=== PATIENT | female | born 1980 ===

== ENCOUNTER 2018-01-31 07:30 | Day surgery (SDC) | payer BC, OTHER ==
[~2018-01-31 07:30] MED LIST: Buffered Lidocaine 0.9% SYRIN* 5 ML/SYR SYRINGE INTRADERM ONE; Famotidine TAB* 20 MG PO ONE
[2018-01-31] MEDS ORDERED: Famotidine TAB* 20 MG ONE (08:09)
[2018-01-31] MEDS ORDERED: Ketorolac INJ* 30 MG/ML 1 ML VIAL ONE ×2 (08:09→08:32)
[2018-01-31] MEDS ORDERED: ceFAZolin 2 GM PREMIX (*) 2 GM/50 ML BAG IVPB ONE (08:09)
[2018-01-31] MEDS ORDERED: fentaNYL* 50 MCG/ML 2 ML VIAL (100 MCG VIAL) ONE ×2 (08:25→09:42)
[2018-01-31] MEDS ORDERED: Midazolam* 1 MG/ML 5 ML VIAL (5 MG) ONE (08:26)
[2018-01-31] MEDS ORDERED: DiMENhydriNATE IV* 50 MG/ML VIAL ONE (08:32)
[2018-01-31] MEDS ORDERED: Propofol* 10 MG/ML 20 ML BTL IV PUSH ONE (08:32)
[2018-01-31] MEDS ORDERED: Succinylcholine* 20 MG/ML 10 ML VIAL ONE (08:32)
[2018-01-31] MEDS ORDERED: Lidocaine 2% PF * 5 ML VIAL ONE (08:32)
[2018-01-31] MEDS ORDERED: Dexamethasone IV* 4 MG/ML 1 ML (4 MG) ONE (08:32)
[2018-01-31] MEDS ORDERED: Rocuronium* 10 MG/ML VIAL ONE (08:33)
[2018-01-31] MEDS ORDERED: Bupivacaine 0.25% SDV* 30 ML ONE (09:02)
[2018-01-31] MEDS ORDERED: DiMENhydriNATE IV* 50 MG/ML VIAL IV PUSH PRN (10:06)
[2018-01-31] MEDS ORDERED: Naloxone* 0.4 MG/ML 1 ML VIAL IV PRN (10:06)
[2018-01-31] MEDS ORDERED: Acetaminophen IV 1GM/100ML * 1,000 MG/100 ML VIAL IVPB ONE (10:06)
--- NOTE | 2018-01-31 11:08 | BRIEFOPN ---
Brief Operative Note - Surgery Procedures: Preop Dx: Abdominal Pain Postop Dx: Same Procedure: Laparoscopic Lysis of Adhesion Surgeon: Marry Assist: HIMA Billings; HAKEEM Mujica Anesthesia: GET; Klufas Fluids: 1500mL LR EBL: <10mL Specimen: None Drains: None Findings: Dictated
[2018-01-31] MEDS ORDERED: oxyCODONE TAB* 5 MG TAB ONE (11:40)
[2018-01-31] MEDS ORDERED: HYDROmorphone INJ* 2 MG/ML CARPUJECT SYRINGE ONE (11:40)
[2018-01-31] MEDS ORDERED: Acetaminophen IV 1GM/100ML * 100 ML ONE (11:41)
[2018-01-31] MEDS: oxyCODONE TAB* 5 MG TAB PO PRN ×2 (11:42→11:45)
[2018-01-31] MEDS: HYDROmorphone INJ* 1 MG/ML CARPUJECT SYRINGE IV PRN ×5 (11:46→12:30)
[2018-01-31 13:13] VITALS: BP 111/74
--- NOTE | 2018-02-01 04:26 | OP ---
CC: Dr. Silver Blanco. * DATE OF OPERATION: 01/31/18 - SDS DATE OF : 84 SURGEON: Shamir Tuttle MD RECRUITING CONSULTANT: HIMA Ritchie ANESTHESIOLOGIST: Dr. Valdovinos. ANESTHESIA: General anesthetic, local infiltration. PRE-OP DIAGNOSIS: Chronic abdominal pain. POST-OP DIAGNOSIS: Chronic abdominal pain. OPERATIVE PROCEDURE: Diagnostic laparoscopy with lysis of adhesions. DESCRIPTION OF PROCEDURE: Patient was supine on the operative table. After adequate general anesthetic, compression stockings, Josh Hugger warmer and intravenous antibiotics, the abdomen was prepped with antiseptic, draped in a sterile fashion. Local infiltrative anesthesia is administered. Left upper quadrant 5 mm Visiport cannula was placed without difficulty. Insufflation was carried out with carbon dioxide. Additional cannulae 5 mm left mid abdomen and supraumbilical were placed through small small stab wounds under direct vision. There were adhesions of the small bowel up to the anterior abdominal wall in the lower abdomen in the right lower quadrant. The small bowel was run from the ligament of Treitz down towards the terminal ileum and the mid to distal ileum had multiple adhesions and these were painstakingly taken down bit by bit until the bowel was nicely freed up and examined. There were no areas of bowel that were kinked or twisted and no areas of dilated bowel. The bowel was all in good condition and hemostasis appeared adequate. The cannulae were removed. Pneumoperitoneum allowed to escape, and the skin closed with 5-0 Vicryl followed by Steri-Strips. She was awaken and brought to Recovery in good condition. There were no complications. No drains. No pathologic specimens. Sponge and instrument counts correct. Estimated blood loss is 30 mL. [id number]/[facility] #: [id number] [facility]
== END 2018-01-31 13:29 | disposition home or self-care (01) ==
LOC: OR 07:30
PROVIDERS: ATTEND Surgery
DX: K66.0 Peritoneal adhesions (postprocedural) (postinfection) (principal); R10.13 Epigastric pain; Z72.0 Tobacco use; G56.03 Carpal tunnel syndrome, bilateral upper limbs; F41.9 Anxiety disorder, unspecified; G43.909 Migraine, unspecified, not intractable, without status migrainosus; J30.2 Other seasonal allergic rhinitis
CPT/HCPCS: 81025; A9270-GY; J0330; J0690; J1100; J1170; J1240; J1885; J2250; J2704; J3010